=== PATIENT | female | born 1980 | race Caucasian/White ===

== ENCOUNTER → 2019-08-16 | Outpatient (CLI) | payer OTHER ==
--- NOTE | 2019-08-16 08:58 | PCVCIMAG ---
EXAM: BILATERAL RENAL ULTRASOUND AND BILATERAL RENAL DUPLEX INDICATION: Hypertension FINDINGS: Right kidney: Length measures 12.0 cm. No hydronephrosis or extensive renal scarring. Right renal duplex: Adequate technical quality. No sonographic evidence of renal artery stenosis. The aortic to renal artery ratio is 2.1. The renal vein is patent. Left kidney: Length measures 11.7 cm. No hydronephrosis or extensive renal scarring. 0.8 cm probable calculus lower pole left kidney. Left renal duplex: Adequate technical quality. No sonographic evidence of renal artery stenosis. The aortic to renal artery ratio is 1.1. The renal vein is patent. Bladder: No obvious abnormalities. IMPRESSION: No significant renal artery stenosis. No hydronephrosis bilaterally. LOC:[id number]
--- NOTE | 2019-08-16 16:52 | PCVCIMAG ---
APPROVED REPORT Study performed: 08/16/2019 08:55:19 EXAM: Comprehensive 2D, Doppler, and color-flow Echocardiogram Patient Location: Echo lab Status: routine BSA: 2.07 HR: 48 bpmBP: 128/86 mmHg Rhythm: NSR Other Information Study Quality: Good Risk Factors: Cardiac Risk Factors: HTN, Hyperlipidemia, Smoking 2D Dimensions IVSd: 13.04 (7-11mm)LVOT Diam: 21.37 (18-24mm) LVDd: 44.29 mm PWd: 10.65 (7-11mm)Ascending Ao: 34.07 (22-36mm) LVDs: 28.30 (25-40mm) Left Atrium: 43.39 (27-40mm) Aortic Root: 31.28 mm LV Single Plane 4CH: 54.94 % LV Single Plane 2CH: 58.58 % Biplane EF: 56.3 % Volumes Left Atrial Volume (Systole) Single Plane 4CH: 49.79 mLSingle Plane 2CH: 55.03 mL LA ESV Index: 27.00 mL/m2 Aortic Valve AoV Peak Dimitrios.: 1.32 m/s AO Peak Gr.: 7.02 mmHgLVOT Max P.15 mmHg LVOT Max V: 1.02 m/s BREEZY Vmax: 2.76 cm2 Mitral Valve E/A Ratio: 2.1 MV Decel. Time: 205.44 ms MV E Max Dimitrios.: 1.09 m/s MV A Dimitrios.: 0.51 m/s IVRT: 103.81 ms TDI E/Lateral E': 9.08E/Medial E': 12.11 Medial E' Dimitrios.: 0.09 m/s Lateral E' Dimitrios.: 0.12 m/s Pulmonary Valve PV Peak Gr.: 1.62 mmHg Pulmonary Vein P Vein S: 0.42 m/sP Vein A: 0.53 m/s P Vein D: 0.36 m/sP Vein A Dur.: 121.1 msec P Vein S/D Ratio: 1.17 Tricuspid Valve TR Peak Dimitrios.: 2.29 m/s TR Peak Gr.: 20.94 mmHg Left Ventricle The left ventricle is normal size. There is normal LV segmental wall motion. There is normal left ventricular wall thickness. Left ventricular systolic function is normal. The left ventricular ejection fraction is within the normal range. 50-55% Right Ventricle The right ventricle is normal size. The right ventricular systolic function is normal. Atria The left atrium size is normal. The right atrium size is normal. Aortic Valve The aortic valve is normal in structure. No aortic regurgitation is present. There is no aortic valvular stenosis. Mitral Valve The mitral valve is normal in structure. Trace mitral regurgitation. No evidence of mitral valve stenosis. Tricuspid Valve The tricuspid valve is normal in structure. Trace tricuspid regurgitation. Pulmonary artery pressure is 28mmHg. Pulmonic Valve The pulmonary valve is normal in structure. There is no pulmonic valvular regurgitation. Great Vessels The aortic root is normal in size. IVC is normal in size and collapses >50% with inspiration. Pericardium There is no pericardial effusion. <Conclusion> 50-55% The right ventricle is normal size. The left atrium size is normal. The aortic valve is normal in structure. There is no aortic valvular stenosis. Trace mitral regurgitation. Trace tricuspid regurgitation. Pulmonary artery pressure is 28mmHg. The aortic root is normal in size. There is no pericardial effusion.
== END | disposition home or self-care (01) ==
LOC: PCVCIMAG 07:59
PROVIDERS: ATTEND Internal Medicine Cardiovascular Disease
DX: I10 Essential (primary) hypertension (principal); E78.5 Hyperlipidemia, unspecified; F17.210 Nicotine dependence, cigarettes, uncomplicated
CPT/HCPCS: 76770; 93306; 93975